=== PATIENT | female | born 1940 | race Caucasian/White ===

== ENCOUNTER → 2019-01-02 16:27 | Outpatient (CLI) | payer MEDICARE, SELFPAY ==
--- NOTE | 2019-01-04 16:02 | PM.PFT.1 ---
Pulmonary Function Test Referral & Results Date Patient Seen: 01/02/19 Requesting provider: Suze Gutierrez Results: The spirometry demonstrates an FVC of 1.44 L which is 71% of predicted. The FEV1 was measured at 1.19 L which is 80% of predicted. The FEV1/FVC ratio was 82 which is 111% of predicted. Following the administration of bronchodilator there was no improvement. Lung volumes show an SVC of 1.61 L which is 74% of predicted. The diffusing capacity was measured at 9.94 which is 56% of predicted. No hemoglobin value was provided, so no correction for potential anemia could be made, if appropriate. 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
== END ==
PROVIDERS: Family Provider Family Medicine; PCP Family Medicine; Visit Provider Family Medicine
DX: R06.09 Other forms of dyspnea (principal)
CPT/HCPCS: 94060; 94726; 94729

== ENCOUNTER → 2019-03-08 13:51 | Outpatient (CLI) | payer MEDICARE, SELFPAY ==
--- NOTE | 2019-03-08 | DI.ECHO.S_ITS ---
[place] +---------+ [facility] +---------+ : : [address] : : : : [address] : : : : [id number] : : : : Phone: [phone] : [phone]+ Echocardiogram Report + + :Name: LAZARO REYES Study Date: 03/08/2019 Height: 56 in : :[facility] Weight: 115 lb : : Gender: Female BSA: 1.4 m2 : :: 1940 Age: 78 yrs BP: 150/70 mmHg: :Reason For Study: Murmur : : Performed By: Sabrina Powell : :Referring: RENE KNOTT : + + Interpretation Summary Normal left ventricle size with ejection fraction 65-70%. Mildly dilate left atrium. Moderate to severe aortic stenosis. Mild aortic regurgitation. Mild mitral annular calcification. The ascending aorta is at the upper limits of normal in size. Procedure: A two-dimensional transthoracic echocardiogram with color flow and Doppler was performed. The study quality was technically adequate. There is no prior echocardiogram noted for this patient. The heart rate ranged between 68-81 bpm during the study. Left Ventricle: The left ventricle is normal in size. There is normal left ventricular wall thickness. The ejection fraction is estimated to be 65-70%. There are no focal wall motion abnormalities. Diastolic function could not be accurately assessed due to atrial fibrillation. Right Ventricle: The right ventricle grossly appears normal in size with probable normal systolic function. Atria: The left atrium is mildly dilated. Right atrial size is normal. The interatrial septum is intact with no evidence for an atrial septal defect. Mitral Valve: The mitral valve is grossly normal. There is mild mitral annular calcification. There is trace mitral regurgitation. Aortic Valve: There is moderate to severe aortic stenosis. The calculated aortic valve area is 0.9 cm2. The aortic valve area is 1.1 centimeters squared by planimetry. The peak aortic velocity is 3.2 m/sec. The aortic valve mean gradient is 22 mmHg. Severity ratio is 0.32. There is mild aortic regurgitation. Tricuspid Valve: The tricuspid valve is normal in structure and function. There is trace tricuspid regurgitation. The right ventricular systolic pressure is estimated to be at least 23 mmHg based on an estimated right atrial pressure of 3 mm Hg. Pulmonic Valve: The pulmonic valve is not well seen, but is grossly normal. There is trace pulmonic regurgitation. Great Vessels: The aortic root is normal size. The ascending aorta is at the upper limits of normal in size. The aortic arch is normal in size. The IVC is of normal diameter and collapses greater than 50% with a sniff. This suggests a low right atrial pressure of 3 mm Hg. Pericardium/ Pleura There is no pericardial effusion. There is no pleural effusion. MMode/2D Measurements & Calculations LVIDd: 3.8 cm LVOT diam: 2.0 cm LVIDs: 2.0 cm Ao root diam: 3.0 cm FS: 47.0 % Aortic Jxn: 2.0 cm EPSS: 0.46 cm asc Aorta Diam: 3.6 cm IVSd: 1.0 cm Ao Arch Diam (Prox Trans): 3.1 cm LVPWd: 0.74 cm LV rivera. diameter/BSA (cm/m^2): 2.7 LV sys. diameter/BSA (cm/m^2): 1.5 LA dimension: 3.4 cm RA long axis: 3.2 cm LA A2 area: 17.7 cm2 RA area: 9.2 cm2 LA A4 area: 15.9 cm2 RA vol: 22.0 ml LA length (vol): 4.2 cm RA : 15.7 ml/m2 LA vol: 57.0 ml IVC diam: 0.59 cm LA vol index: 40.6 ml/m2 RVDd major: 4.1 cm RVD1 (basal): 2.6 cm RVD2 (mid): 2.0 cm CHUCK (plan): 1.1 cm2 Doppler Measurements & Calculations Ao V2 max: 315.5 cm/sec LVOT Max Nemesio: 93.8 cm/sec Ao V2 mean: 220.3 cm/sec LV V1 max P.5 mmHg Ao max P.8 mmHg LV V1 VTI: 25.8 cm Ao mean P.2 mmHg CHUCK(I,D): 0.98 cm2 Ao V2 VTI: 80.6 cm CHUCK(V,D): 0.91 cm2 sev ratio: 0.32 CHUCK indexed to BSA (cm^2/m^2): 0.70 MV E max nemesio: 102.3 cm/sec TR max nemesio: 224.0 cm/sec MV A max nemesio: 98.8 cm/sec TR max P.1 mmHg MV E/A: 1.0 PA V2 max: 78.6 cm/sec Med Peak E' Nemesio: 7.3 cm/sec PA V2 mean: 52.3 cm/sec E/E' med: 14.1 PA mean P.3 mmHg Lat Peak E' Nemesio: 7.4 cm/sec PA Accel Time: 0.15 sec E/E' lat: 13.9 E/e' average: 14.0 MV dec time: 0.20 sec MV P1/2t: 58.2 msec MV P1/2t max nemesio: 102.6 cm/sec SV(LVOT): 78.7 ml MVA(/2t): 3.8 cm2 Electronically signed by: Michael Dupont on Reading Physician:03/08/2019 03:50 PM
== END ==
PROVIDERS: PCP Physician Assistant Medical; Visit Provider Physician Assistant Medical
DX: I35.2 Nonrheumatic aortic (valve) stenosis with insufficiency (principal); R01.1 Cardiac murmur, unspecified
CPT/HCPCS: 93306

== ENCOUNTER → 2020-03-25 15:54 | Outpatient (CLI) | payer MEDICARE, SELFPAY ==
--- NOTE | 2020-03-25 | DI.ECHO.S_ITS ---
[place] +---------+ Hospital +---------+ : : [address] : : : : [address] : : : : [id number] : : : : Phone: [phone]+ Echocardiogram Report + + :Name: LAZARO REYES Study Date: 03/25/2020 Height: 56 in : :[facility] Weight: 134 lb : : Gender: Female BSA: 1.5 m2 : :: 1940 Age: 79 yrs BP: 129/75 mmHg: :Reason For Study: AORTIC STENOSIS : :Ordering Physician: MARISSA, : :NEIL Performed By: Debra Gonsales : :Referring: NEIL FOUNTAIN : + + Interpretation Summary 1) Normal left ventricular size, thickness, wall motion, and systolic function (EF 60-65%). 2) Normal right ventricular size and function. 3) The left atrium is moderately dilated. 4) Early severe aortic stenosis present (valve area 0.75cm2, mean gradient 31mmHg, severity ratio 0.25). Mild aortic regurgitation present. 5) Compared to the Echo done 03/08/2019, aortic stenosis has progressed from moderate-severe to early severe on this study. Procedure: A two-dimensional transthoracic echocardiogram with color flow and Doppler was performed. The study quality was technically adequate. Comparison is made with the echocardiogram of 03/08/2019. Left Ventricle: The left ventricle is normal in size and wall thickness. The ejection fraction is estimated to be 60-65%. Diastolic parameters suggest a pseudonormalization pattern, consistent with probable elevated filling pressures. Right Ventricle: The right ventricle is normal in size and function. Atria: The left atrium is moderately dilated. Right atrial size is normal. There is no Doppler evidence for an interatrial shunt. Mitral Valve: The mitral valve is normal in structure and function. There is mild mitral annular calcification. There is mild mitral regurgitation. Aortic Valve: The aortic valve is moderately calcified. The peak aortic velocity is 3.6 m/sec. The aortic valve mean gradient is 31 mmHg. The calculated aortic valve area is .75 cm2. There is severe aortic stenosis. There is mild aortic regurgitation. Tricuspid Valve: The tricuspid valve is normal in structure and function. There is trace tricuspid regurgitation. Pulmonic Valve: The pulmonic valve leaflets are thin and pliable; valve motion is normal. There is mild pulmonic regurgitation. Great Vessels: The aortic root is normal size. The ascending aorta is at the upper limits of normal in size. The IVC is of normal diameter and collapses greater than 50% with a sniff. This suggests a low right atrial pressure of 3 mm Hg. Pericardium/ Pleura There is no pericardial effusion. There is no pleural effusion. MMode/2D Measurements & Calculations LVIDd: 3.5 cm LVOT diam: 2.0 cm LVIDs: 2.1 cm Ao root diam: 2.9 cm FS: 38.3 % asc Aorta Diam: 3.6 cm EPSS: 0.86 cm Ao Arch Diam (Prox Trans): 3.0 cm IVSd: 1.1 cm LVPWd: 0.84 cm LV rivera. diameter/BSA (cm/m^2): 2.3 LV sys. diameter/BSA (cm/m^2): 1.4 LA A2 area: 20.3 cm2 RA long axis: 4.2 cm LA A4 area: 17.9 cm2 RA area: 11.2 cm2 LA length (vol): 4.7 cm RA vol: 25.6 ml LA vol: 65.1 ml RA : 17.1 ml/m2 LA vol index: 43.4 ml/m2 IVC diam: 1.3 cm RVD1 (basal): 3.1 cm TAPSE: 1.8 cm Doppler Measurements & Calculations Ao V2 max: 362.2 cm/sec LVOT Max Nemesio: 87.2 cm/sec Ao V2 mean: 264.0 cm/sec LV V1 max P.0 mmHg Ao max P.5 mmHg LV V1 VTI: 22.9 cm Ao mean P.7 mmHg CHUCK(I,D): 0.75 cm2 Ao V2 VTI: 91.4 cm CHUCK(V,D): 0.72 cm2 sev ratio: 0.25 CHUCK indexed to BSA (cm^2/m^2): 0.50 MV E max nemesio: 103.1 cm/sec PA V2 max: 57.6 cm/sec MV A max nemesio: 95.1 cm/sec PA V2 mean: 37.2 cm/sec MV E/A: 1.1 PA mean P.66 mmHg Med Peak E' Nemesio: 6.2 cm/sec PA pr(Accel): 34.5 mmHg E/E' med: 16.6 Lat Peak E' Nemesio: 6.7 cm/sec E/E' lat: 15.5 E/e' average: 16.0 MV dec time: 0.22 sec SV(LVOT): 68.6 ml Reading Physician:01:23 PM
== END ==
PROVIDERS: PCP Physician Assistant Medical; Referring Provider Internal Medicine Cardiovascular Disease; Visit Provider Internal Medicine Cardiovascular Disease
DX: I08.0 Rheumatic disorders of both mitral and aortic valves (principal)
CPT/HCPCS: 93306

== ENCOUNTER → 2022-03-04 15:42 | Outpatient (CLI) | payer MEDICARE, SELFPAY ==
--- NOTE | 2022-03-04 15:44 | DI.ECHO.S_ITS ---
[place] +---------+ Hospital +---------+ : : [address] : : [address] : [address] : : : : [id number] : : : : Phone: [phone] +[phone]+ Echocardiogram Report + + :Name: LAZARO REYES Study Date: 03/04/2022 Height: 56 in : :[facility] ReadingLocation: Weight: 140 lb : : Gender: Female BSA: 1.5 m2 : :: 1940 Age: 81 yrs BP: 142/87 mmHg: :Reason For Study: Aortic valve stenosis : :Ordering Physician: MARISSA, : :NEIL Performed By: Dimitrios Carlos : :Referring: NEIL FOUNTAIN : + + Interpretation Summary 1) Normal left ventricular size, wall motion, and systolic function (EF 60- 65%). 2) Normal right ventricular size and function. 3) There is severe aortic stenosis (valve area 0.7cm2, mean gradient 45mmHg). 4) There is mild aortic regurgitation. 5) Compared to the Echo done 08/25/2020, aortic stenosis has progressed from moderate-severe to severe on this study. Procedure: A two-dimensional transthoracic echocardiogram with color flow and Doppler was performed. The study quality was technically adequate. Comparison is made with the echocardiogram of 08/25/2020. Left Ventricle: The left ventricle is normal in size. There is mild concentric left ventricular hypertrophy. Left ventricular systolic function is normal. The ejection fraction is estimated to be 60-65%. There are no focal wall motion abnormalities. Diastolic parameters suggest a pseudonormalization pattern, consistent with probable elevated filling pressures. Right Ventricle: The right ventricle is normal in size and function. Atria: The left atrium is mildly dilated. Right atrial size is normal. The interatrial septum grossly appears intact with no obvious evidence for an atrial septal defect. Mitral Valve: There is mild mitral annular calcification. There is mild mitral regurgitation. Aortic Valve: The aortic valve is moderately calcified. There is severely reduced leaflet mobility. There is severe aortic stenosis. The calculated aortic valve area is .7 cm2. The aortic valve mean gradient is 45 mmHg. The peak aortic velocity is 4.2 m/sec. There is mild aortic regurgitation. Tricuspid Valve: The tricuspid valve is normal in structure and function. There is a trace or physiologic amount of tricuspid regurgitation. Pulmonary artery pressures cannot be estimated because of the lack of a measurable TR jet velocity. Pulmonic Valve: The pulmonic valve is not well seen, but is grossly normal. There is no pulmonic valvular regurgitation. Great Vessels: The aortic root is normal size. The dimensions of the ascending aorta are normal. The IVC is of normal diameter and collapses greater than 50% with a sniff. This suggests a low right atrial pressure of 3 mm Hg. Pericardium/ Pleura There is no pericardial effusion. There is no pleural effusion. MMode/2D Measurements & Calculations LVIDd: 4.1 cm LVOT diam: 2.0 cm LVIDs: 2.7 cm Ao root diam: 2.7 cm FS: 34.5 % asc Aorta Diam: 3.5 cm IVSd: 1.2 cm LVPWd: 1.2 cm LV rivera. diameter/BSA (cm/m^2): 2.7 LV sys. diameter/BSA (cm/m^2): 1.8 LA A2 area: 17.5 cm2 RA long axis: 3.9 cm LA A4 area: 18.6 cm2 RA area: 10.0 cm2 LA length (vol): 5.4 cm RA vol: 21.7 ml LA vol: 51.1 ml RA : 14.2 ml/m2 LA vol index: 33.5 ml/m2 TAPSE: 1.6 cm Doppler Measurements & Calculations Ao V2 max: 420.2 cm/sec LVOT Max Nemesio: 103.9 cm/sec Ao V2 mean: 313.4 cm/sec LV V1 max P.3 mmHg Ao max P.6 mmHg LV V1 VTI: 24.8 cm Ao mean P.8 mmHg CHUCK(I,D): 0.77 cm2 Ao V2 VTI: 96.4 cm CHUCK(V,D): 0.74 cm2 sev ratio: 0.26 CHUCK indexed to BSA (cm^2/m^2): 0.51 AI P1/2t: 504.4 msec AI dec slope: 203.0 cm/sec2 MV E max nemesio: 104.3 cm/sec SV(LVOT): 74.5 ml MV A max nemesio: 128.5 cm/sec MV E/A: 0.81 Med Peak E' Nemesio: 4.4 cm/sec E/E' med: 23.8 Lat Peak E' Nemesio: 6.2 cm/sec E/E' lat: 16.8 E/e' average: 20.3 MV dec time: 0.25 sec Reading Physician:04:58 PM
== END ==
PROVIDERS: PCP Physician Assistant Medical; Referring Provider Internal Medicine Cardiovascular Disease; Visit Provider Internal Medicine Cardiovascular Disease
DX: I08.1 Rheumatic disorders of both mitral and tricuspid valves (principal)
CPT/HCPCS: 93306

== ENCOUNTER → 2022-12-22 10:37 | Outpatient (CLI) | payer MEDICARE, SELFPAY ==
--- NOTE | 2022-12-22 | DI.ECHO.S_ITS ---
[facility] +---------+ Hospital +---------+ : : [address] : [address] : : : : [id number] : : : : Phone: [phone] +[phone]+ Echocardiogram Report + + :Name: LAZARO REYES Study Date: 12/22/2022 Height: 55 in : :[facility] ReadingLocation: Weight: 125 lb : : Gender: Female BSA: 1.4 m2 : :: 1940 Age: 82 yrs BP: 129/71 mmHg: :Reason For Study: AORTIC STENOSIS : :Ordering Physician: MARISSA, : :NEIL Performed By: Debra Gonsales : :Referring: NEIL FOUNTAIN : + + Interpretation Summary 1) Normal left ventricular size, wall motion, and systolic function (EF 60- 65%). 2) Normal right ventricular size and function. 3) There is severe aortic stenosis (valve area 0.6cm2, mean gradient 45mmHg). 4) There is mild aortic regurgitation. 5) Compared to the Echo done 03/04/2022, no significant change. Procedure: A two-dimensional transthoracic echocardiogram with color flow and Doppler was performed. The study quality was technically adequate. Comparison is made with the echocardiogram of 03/04/2022. The patient was in sinus rhythm with heart rates between 63-82 bpm during the exam. Left Ventricle: The left ventricle is normal in size. There is mild concentric left ventricular hypertrophy. The ejection fraction is estimated to be 60-65%. Left ventricular systolic function appears normal without focal wall motion abnormalities. Right Ventricle: The right ventricle is normal in size and function. Atria: The left atrium is moderately dilated. Right atrial size is normal. There is no Doppler evidence for an interatrial shunt. Mitral Valve: There is mild mitral annular calcification. There is mild mitral regurgitation. Aortic Valve: The aortic valve is severely calcified. There is severely reduced leaflet mobility. There is severe aortic stenosis. The peak aortic velocity is 4.2 m/sec. The aortic valve mean gradient is 45 mmHg. The calculated aortic valve area is 0.62 cm2. There is mild aortic regurgitation. Tricuspid Valve: The tricuspid valve is normal in structure and function. There is trace tricuspid regurgitation. Pulmonic Valve: The pulmonic valve leaflets are thin and pliable; valve motion is normal. There is no pulmonic valvular regurgitation. Great Vessels: The aortic root is normal size. The dimensions of the ascending aorta are normal. The IVC is of normal diameter and collapses greater than 50% with a sniff. This suggests a low right atrial pressure of 3 mm Hg. Pericardium/ Pleura There is no pericardial effusion. There is no pleural effusion. MMode/2D Measurements & Calculations LVIDd: 4.1 cm LVOT diam: 2.0 cm LVIDs: 2.7 cm Ao root diam: 2.7 cm FS: 34.7 % asc Aorta Diam: 3.2 cm IVSd: 1.0 cm Ao Arch Diam (Prox Trans): 2.9 cm LVPWd: 1.1 cm LV rivera. diameter/BSA (cm/m^2): 2.9 LV sys. diameter/BSA (cm/m^2): 1.9 LA A2 area: 17.8 cm2 RA long axis: 3.9 cm LA A4 area: 18.5 cm2 RA area: 8.3 cm2 LA length (vol): 4.8 cm RA vol: 14.9 ml LA vol: 58.4 ml RA : 10.4 ml/m2 LA vol index: 40.7 ml/m2 IVC diam: 1.4 cm RVD1 (basal): 2.6 cm RVD2 (mid): 2.3 cm TAPSE: 1.6 cm Doppler Measurements & Calculations Ao V2 max: 420.6 cm/sec LVOT Max Nemesio: 86.6 cm/sec Ao V2 mean: 302.2 cm/sec LV V1 max P.0 mmHg Ao max P.8 mmHg LV V1 VTI: 22.5 cm Ao mean P.6 mmHg CHUCK(I,D): 0.73 cm2 Ao V2 VTI: 93.5 cm CHCUK(V,D): 0.62 cm2 sev ratio: 0.24 CHUCK indexed to BSA (cm^2/m^2): 0.51 AI P1/2t: 572.8 msec AI dec slope: 154.4 cm/sec2 MV E max nemesio: 70.1 cm/sec PA V2 max: 103.0 cm/sec MV A max nemesio: 120.7 cm/sec PA V2 mean: 69.1 cm/sec MV E/A: 0.58 PA mean P.2 mmHg Med Peak E' Nemesio: 3.7 cm/sec E/E' med: 19.1 Lat Peak E' Nemesio: 5.5 cm/sec E/E' lat: 12.8 E/e' average: 15.9 MV dec time: 0.33 sec SV(LVOT): 68.0 ml Reading Physician:07:46 PM
== END ==
PROVIDERS: PCP Physician Assistant Medical; Referring Provider Internal Medicine Cardiovascular Disease; Visit Provider Internal Medicine Cardiovascular Disease
DX: I08.0 Rheumatic disorders of both mitral and aortic valves (principal)
CPT/HCPCS: 93306

== ENCOUNTER → 2024-06-11 14:00 | Outpatient (CLI) | payer MEDICARE, SELFPAY ==
--- NOTE | 2024-06-11 14:04 | DI.RAD.S_ITS ---
PROCEDURE: XR CHEST 2V INDICATIONS: HEART FAILURE TECHNIQUE: 2 views of the chest were acquired. COMPARISON: None. FINDINGS: Surgical changes and devices: Prosthetic valve. Vertebral augmentation of the mid vertebral bodies. Lungs and pleura: Lungs are clear. No pleural effusions or pneumothorax. Mediastinum: Cardiomegaly. Bones and chest wall: No suspicious bony abnormalities. Soft tissues appear unremarkable. IMPRESSION: No acute cardiopulmonary abnormality is seen. Dictated by: Dain Brown M.D. on 06/11/2024 at 15:07 Approved by: Dain Brown M.D. on 06/11/2024 at 15:07
[2024-06-11 15:51] LABS: BUN Creatinine Ratio 26.4 (6-22); Blood Urea Nitrogen 34 mg/dL (7-17); Calcium 10.1 mg/dL (8.4-10.2); Carbon Dioxide 32 mmol/L (22-32); Chloride 97 mmol/L (98-107); Estimated Glomerular Filt Rate 41 mL/min (>60); Glucose 129 mg/dL (80-110); HEMOLYSIS < 15 (0-50); Potassium 4.6 mmol/L (3.4-5.1); Sodium 135 mmol/L (137-145)
[2024-06-11 15:57] LABS: NT-proBNP (BNP-Adult 18+) 1020 pg/mL (<450)
== END ==
PROVIDERS: PCP Physician Assistant Medical; Referring Provider Internal Medicine Cardiovascular Disease; Visit Provider Internal Medicine Cardiovascular Disease
DX: I50.32 Chronic diastolic (congestive) heart failure (principal); I51.7 Cardiomegaly; Z95.2 Presence of prosthetic heart valve
CPT/HCPCS: 36415; 71046; 80048; 83880

== ENCOUNTER → 2025-05-02 12:38 | Outpatient (CLI) | payer MEDICARE, SELFPAY ==
--- NOTE | 2025-05-02 12:39 | DI.ECHO.S_ITS ---
[place] +---------+ Hospital : : [address] : : [place] : : [id number] : : Phone: [phone] Echocardiogram Report + + :Name: LAZARO REYES Study Date: 05/02/2025 Height: 55 in : :[facility] ReadingLocation: Weight: 112 lb : : Gender: Female BSA: 1.4 m2 : :: 1940 Age: 84 yrs BP: 162/77 mmHg: :Reason For Study: CHRONIC HEART FAILURE : :Ordering Physician: MARISSA, : :NEIL Performed By: Jeremiah Carvalho : :Referring: NEIL FOUNTAIN : + + Interpretation Summary 1) Normal left ventricular thickness, size, wall motion, and systolic function (EF 60-65%). 2) Normal right ventricular size and function. 3) There is a bioprosthetic aortic valve that is well seated and opens well (mean gradient 16mmHg). Trace aortic regurgitation is present. 4) Compared to the echo done 05/31/2023, no significant change. Procedure: A two-dimensional transthoracic echocardiogram with color flow and Doppler was performed. The study quality was technically good. Comparison is made with the echocardiogram of 05/31/2023. The patient was in normal sinus rhythm during the exam. Left Ventricle: The left ventricle is normal in size. Left ventricular wall thickness is normal. Proximal septal thickening is noted. There is no ventricular septal defect visualized. The ejection fraction is estimated to be 65-70%. There are no focal wall motion abnormalities. Diastolic parameters suggest a relaxation abnormality of the left ventricle, consistent with probable normal filling pressures. Right Ventricle: The right ventricle is normal in size and function. Atria: The left atrium is moderately dilated. Right atrial size is normal. There is no Doppler evidence for an interatrial shunt. Mitral Valve: There is mild to moderate mitral annular calcification. The mitral valve leaflets appear mildly thickened. There is mild mitral regurgitation. Aortic Valve: There is a bioprosthetic aortic valve. The peak aortic velocity is 2.6 m/sec. The aortic valve mean gradient is 15.7 mmHg. There is trace aortic regurgitation. Tricuspid Valve: The tricuspid valve leaflets are thin and pliable. There is trace tricuspid regurgitation. The right ventricular systolic pressure is estimated to be at least 29 mmHg based on an estimated right atrial pressure of 3 mm Hg. Pulmonic Valve: The pulmonic valve is not well seen, but is grossly normal. There is trace pulmonic regurgitation. Great Vessels: The aortic root is normal size. The dimensions of the ascending aorta are normal. The pulmonary artery is not well visualized, but is probably normal size. The IVC is of normal diameter and collapses greater than 50% with a sniff. This suggests a low right atrial pressure of 3 mm Hg. Pericardium/ Pleura There is no pericardial effusion. There is no pleural effusion. MMode/2D Measurements & Calculations LVIDd: 4.0 cm LVOT diam: 1.5 cm LVIDs: 2.7 cm Ao root diam: 2.7 cm FS: 32.7 % asc Aorta Diam: 3.2 cm EPSS: 0.66 cm IVSd: 1.4 cm LVPWd: 0.99 cm LV rivera. diameter/BSA (cm/m^2): 2.9 LV sys. diameter/BSA (cm/m^2): 1.9 LA A2 area: 20.2 cm2 RA long axis: 4.1 cm LA A4 area: 21.3 cm2 RA area: 9.8 cm2 LA length (vol): 5.4 cm RA vol: 20.3 ml LA vol: 67.5 ml RA : 14.8 ml/m2 LA vol index: 49.2 ml/m2 IVC diam: 1.6 cm RVD1 (basal): 3.5 cm RVD2 (mid): 2.4 cm TAPSE: 1.7 cm Doppler Measurements & Calculations Ao V2 max: 259.6 cm/sec LVOT Max Nemesio: 88.8 cm/sec Ao V2 mean: 188.3 cm/sec LV V1 max P.2 mmHg Ao max P.0 mmHg LV V1 VTI: 26.2 cm Ao mean P.7 mmHg CHUCK(I,D): 0.63 cm2 Ao V2 VTI: 75.2 cm CHUCK(V,D): 0.61 cm2 sev ratio: 0.35 CHUCK indexed to BSA (cm^2/m^2): 0.46 MV E max nemesio: 80.1 cm/sec TR max nemesio: 266.2 cm/sec MV A max nemesio: 110.8 cm/sec TR max P.3 mmHg MV E/A: 0.72 PA V2 max: 87.6 cm/sec Med Peak E' Nemesio: 4.2 cm/sec PA V2 mean: 59.5 cm/sec E/E' med: 19.1 PA mean P.6 mmHg Lat Peak E' Nemesio: 4.4 cm/sec PA pr(Accel): 46.5 mmHg E/E' lat: 18.2 E/e' average: 18.6 MV dec time: 0.40 sec SV(OT): 47.2 ml Reading Physician:06:21 PM
== END ==
LOC: ECHO 12:39
PROVIDERS: PCP Physician Assistant Medical; Referring Provider Physician Assistant Medical; Visit Provider Internal Medicine Cardiovascular Disease
DX: I34.81 Nonrheumatic mitral (valve) annulus calcification (principal); I34.0 Nonrheumatic mitral (valve) insufficiency; I50.32 Chronic diastolic (congestive) heart failure; Z95.2 Presence of prosthetic heart valve
CPT/HCPCS: 93306